=== PATIENT | male | born 1965 | race Caucasian/White ===

== ENCOUNTER 2018-11-25 23:43 | Emergency (ER) | payer BC ==
[~2018-11-25] VITALS: Ht 167.6 cm; Wt 77.0 kg
[~2018-11-25 23:43] MED LIST: ACET500C5 PO; ALBU8.5H8 INH; AUG250 PO; AUG875 PO; CETI10CA PO; CITROMA PO; IBUP-1542 PO; NAPR-688 PO; POLY17PO6 PO
[2018-11-25 23:46] VITALS: Ht 167.6 cm; Wt 77.0 kg
--- NOTE | 2018-11-26 00:16 | ERD ---
ER Documentation Chief Complaint Chief Complaint N/V X 2 WEEKS PT DENIES PAIN HPI This is a 53-year-old male who presents here in emergency department with complaints of nausea and vomiting that is on and off for about 2 weeks. Stated that he has chest discomfort at times. Stated that he saw his primary care physician, week ago and was prescribed with amoxicillin for ear infection. Also complains of nasal congestion. Denies headache, head injury, loss of consciousness, dizziness, neck pain, neck stiffness, throat pain, difficulty swallowing, difficulty breathing lying flat, shoulder pain, chest pain, back pain, abdominal pain, constipation, diarrhea, urinary symptoms, loss of bowel and bladder control, trauma, injury, falls, difficulty walking due to pain, numbness or tingling sensation, calf pain, recent travel, recent major surgery in the last 3 weeks, calf pain, recent long travel, recent exposure to any illness, recent antibiotic use in the last 3 months, fever, chills, seizures. Past medical history: Surgical history: Social: Denies smoking, use of alcoholic beverages, use of illegal drugs. ROS All systems reviewed and are negative except as per history of present illness. Medications Home Meds Active Scripts Mometasone Furoate* (Nasonex*) 50 Mcg/[place] - 17 Gm [place].pump, 1 SPRAY NASAL DAILY, #1 BOTTLE TO EACH NOSTRIL Prov:BERTO QUEZADA 11/26/18 Prednisone* (Prednisone*) 20 Mg Tab, 40 MG PO DAILY for 5 Days, TAB Prov:PASILASARAYEDTONI F 11/26/18 Omeprazole* (Omeprazole*) 40 Mg Capsule.dr, 40 MG PO DAILY, #30 CAP Prov:BERTO QUEZADA 11/26/18 Ondansetron Hcl* (Zofran*) 4 Mg Tablet, 4 MG PO Q8H PRN for NAUSEA AND/OR VOMITING, #30 TAB Prov:BERTO QUEZADA 11/26/18 Acetaminophen* (Tylophen*) 500 Mg Capsule, 1 CAP PO Q6H PRN for PAIN AND OR ELEVATED TEMP, #20 CAP Prov:TRACIEBERTO BROTHERS F 11/26/18 Albuterol Sulfate* (Proair HFA*) 8.5 Gm Hfa.aer.ad, 2 PUFF INH Q6, #1 INHALER Prov:LAISHA ALANIZ PA-C 05/14/16 Cetirizine Hcl* (Zyrtec*) 10 Mg Capsule, 10 MG PO DAILY, #10 TAB.CHEW Prov:LAISHA ALANIZ Pearl EUGENE 05/14/16 Amoxicillin-Clavulanate K* (Augmentin*) 250-125 mg Tab, 250 MG PO TID for 7 Days, TAB Prov:LAISHA ALANIZ Pearl EUGENE 05/14/16 Ibuprofen* (Motrin*) 600 Mg Tab, 600 MG PO Q6H PRN for PAIN AND OR ELEVATED TEMP, #30 TAB Prov:LAISHA ALANIZ Pearl EUGENE 05/14/16 Polyethylene Glycol* (Miralax*) 17 Gm Powd.pack, 17 GM PO DAILY, #10 PACKET Prov:TRES WEST 09/27/15 Magnesium Citrate* (Citroma*) 300 Ml Soln, 300 ML PO ONCE, #1 BOTTLE Prov:BRETTTRES 09/27/15 Naproxen* (Naproxen*) 500 Mg Tablet, 500 MG PO BID PRN for PAIN, #20 TAB Prov:TRES WEST 09/27/15 Acetaminophen* (Tylophen*) 500 Mg Capsule, 1 CAP PO Q6H PRN for PAIN AND OR E LEVATED TEMP, #20 CAP Prov:MAEVE BUCHANAN 01/04/15 Amoxicillin-Clavulanate K* (Augmentin*) 875 Mg Tab, 875 MG PO BID for 7 Days, TAB Prov:MAEVE BUCHANAN 01/04/15 Allergies Allergies: Coded Allergies: No Known Allergy (Unverified , 01/04/15) PMhx/Soc History of Surgery: No Anesthesia Reaction: No Hx Neurological Disorder: No Hx Respiratory Disorders: No Hx Cardiac Disorders: No Hx Psychiatric Problems: No Hx Miscellaneous Medical Probl: No Hx Alcohol Use: Yes Hx Substance Use: No Hx Tobacco Use: No Physical Exam Vitals Physical Exam Const: No acute distress Head: Atraumatic Eyes: Normal Conjunctiva ENT: Normal External Ears, Nose and Mouth. Neck: Full range of motion. No meningismus. Resp: Clear to auscultation bilaterally. Chest area: No vesicular lesions. No signs of trauma. Cardio: Regular rate and rhythm, no murmurs Abd: Soft, non tender, non distended. Normal bowel sounds. Negative Anderson sign. Negative Melissa sign (heel jar test). Negative psoas sign. Negative Rovsing sign. No CVA tenderness. Able to jump twice without developing lower abdominal pain. Skin: No petechiae or rashes. Color appears normal for ethnicity. No skin tenting. No signs of severe dehydration. Back: No midline or flank tenderness Ext: No cyanosis, or edema Neur: Awake and alert. No neurological deficits. Psych: Normal Mood and Affect Result Diagram: 11/26/186 11/26/18 0116 Results 24 hrs Laboratory Tests Test 11/26/18 01:16 White Blood Count 9.1 10^3/ul Red Blood Count 5.35 10^6/ul Hemoglobin 14.7 g/dl Hematocrit 44.8 % Mean Corpuscular Volume 83.7 fl Mean Corpuscular Hemoglobin 27.5 pg Mean Corpuscular Hemoglobin Concent 32.8 g/dl Red Cell Distribution Width 12.0 % Platelet Count 208 10^3/UL Mean Platelet Volume 10.5 fl Immature Granulocytes % 0.400 % Neutrophils % 70.4 % Lymphocytes % 19.8 % Monocytes % 7.8 % Eosinophils % 0.9 % Basophils % 0.7 % Nucleated Red Blood Cells % 0.0 /100WBC Immature Granulocytes # 0.040 10^3/ul Neutrophils # 6.4 10^3/ul Lymphocytes # 1.8 10^3/ul Monocytes # 0.7 10^3/ul Eosinophils # 0.1 10^3/ul Basophils # 0.1 10^3/ul Nucleated Red Blood Cells # 0.0 10^3/ul Prothrombin Time 11.3 Sec Prothrombin Time Ratio 0.9 INR International Normalized Ratio 0.81 Activated Partial Thromboplast Time 29.5 Sec Sodium Level 141 mmol/L Potassium Level 3.8 mmol/L Chloride Level 104 mmol/L Carbon Dioxide Level 26 mmol/L Anion Gap 11 Blood Urea Nitrogen 26 mg/dl Creatinine 0.92 mg/dl Est Glomerular Filtrat Rate mL/min > 60 mL/min Glucose Level 130 mg/dl Calcium Level 8.8 mg/dl Total Bilirubin 0.6 mg/dl Direct Bilirubin 0.00 mg/dl Indirect Bilirubin 0.6 mg/dl Aspartate Amino Transf (AST/SGOT) 23 IU/L Alanine Aminotransferase (ALT/SGPT) 25 IU/L Alkaline Phosphatase 80 IU/L Troponin I < 0.012 ng/ml Total Protein 7.4 g/dl Albumin 4.3 g/dl Globulin 3.10 g/dl Albumin/Globulin Ratio 1.38 Lipase 106 U/L Current Medications Medications Dose Sig/Sindi Start Time Status Last (Trade) Ordered Route PRN Stop Time Admin Dose Reason Admin Ondansetron 4 mg ONCE STAT 11/26/18 DC 11/26/18 HCl (Zofran ODT 00:19 02:10 Odt) 11/26/18 00:21 40 ml ONCE ONCE 11/26/18 DC 11/26/18 Miscellaneous PO 00:30 02:10 Medication 11/26/18 00:31 (Gi Cocktail (2)) Famotidine 40 mg ONCE ONCE 11/26/18 DC 11/26/18 (Pepcid) PO 00:30 02:10 11/26/18 00:31 Procedures/MDM Diagnostic tests: EKG: Normal sinus rhythm with a ventricular rate of 81 bpm. No STEMI. Read by supervising physician. Blood works: Reviewed. Chest x-ray: No evidence for active cardiopulmonary disease. Treatment: Zofran. GI cocktail. Pepcid. Re-evaluation: Denies chest pain, back pain, abdominal pain. No episode of emesis here in the emergency department. Negative Anderson sign. Negative Spangler sign. Negative psoas sign. Negative Rovsing sign. No CVA tenderness. Ambulatory with steady gait without pain to abdomen. Able to jump twice without developing lower abdominal pain. Stated that he feels much better at this time and that he is ready to go home. Differential diagnosis I have low suspicion for acute microinfarction, acute coronary syndrome, pneumothorax, hemothorax, upper GI bleeding, cholecystitis, appendicitis, diverticulitis, appendicitis, bowel obstruction, nephrolithiasis, pyelonephritis, renal failure, AAA, aortic aneurysm. Final diagnosis: Nausea and vomiting. Prescription: Omeprazole. Zofran. Follow-up with PCP in the next 24-48 hours. Follow-up with [employer] [employer] in the next 3 to 5 days. Come back here in the emergency department for any new symptoms or any worsening symptoms. All questions and concerns were answered. Patient and family members verbalized understanding and agreed with plan of care. Hemodynamically stable on discharge. Departure Diagnosis: Primary Impression: Nausea and vomiting Additional Impression: GERD (gastroesophageal reflux disease) Condition: Stable Additional Instructions: Follow-up with PCP in the next 24-48 hours. Follow-up with [employer] [employer] in the next 3 to 5 days. Come back here in the emergency department for any new sympt oms or any worsening symptoms. BERTO QUEZADA Nov 26, 2018 00:16
[2018-11-26] MEDS ORDERED: ONDANSETRON (ODT) 4 MG TAB ODT STA (00:19)
[2018-11-26] MEDS ORDERED: LIDOCAINE/MYLANTA 40 ML BTL PO ONE (00:30)
[2018-11-26] MEDS ORDERED: FAMOTIDINE 20 MG TAB PO ONE (00:30)
[2018-11-26] MEDS ORDERED: OMEP40CA6 PO (03:42)
[2018-11-26] MEDS ORDERED: ONDA4TAB8 PO (03:42)
[2018-11-26] MEDS ORDERED: ACET500C5 PO (03:42)
[2018-11-26] MEDS ORDERED: PRED20TA PO (03:55)
[2018-11-26] MEDS ORDERED: MOME17SP14 NASAL (03:55)
[2018-11-26 03:57] VITALS: BP 151/81; PULSE 68; RESP 16
== END 2018-11-26 03:57 | disposition home or self-care (01) ==
LOC: FTE 23:43
DX: K21.9 Gastro-esophageal reflux disease without esophagitis (principal); R07.9 Chest pain, unspecified
CPT/HCPCS: 71046; 80053; 83690; 84484; 85025; 85610; 85730; 93005; 99285; Z7610